=== PATIENT | male | born 1960 | race Caucasian/White ===

== ENCOUNTER 2025-05-31 06:43 | Day surgery (SDC) | payer BC ==
[2025-05-31] MEDS ORDERED: Rocuronium 100 MG/10 ML MDV IV ONE (06:44)
[2025-05-31] MEDS ORDERED: Ketorolac 30 MG/ML SDV IVPUSH ONE (06:44)
[2025-05-31] MEDS ORDERED: Dexamethasone 4 MG/ML 5 ML MDV IVPUSH ONE (06:44)
[2025-05-31] MEDS ORDERED: PHENYLEPHRINE HCL IV ONE (06:44)
[2025-05-31] MEDS ORDERED: Propofol 200 MG/20 ML SDV IV ONE (06:44)
[2025-05-31] MEDS ORDERED: Midazolam 1 MG/ML 2 ML SDV IV ONE (06:44)
[2025-05-31] MEDS ORDERED: ePHEDrine 50 MG/ML SDV IV ONE (06:44)
[2025-05-31] MEDS ORDERED: diphenhydrAMINE 50 MG/ML SDV IVPUSH ONE (06:44)
[2025-05-31] MEDS ORDERED: fentaNYL 100 MCG/2 ML SDV IV ONE (06:44)
[2025-05-31] MEDS ORDERED: Ondansetron 4 MG/2 ML SDV IVPUSH ONE (06:44)
[2025-05-31] MEDS ORDERED: Sodium Chloride 0.9% 10 ML Syringe FLUSH PRN (06:45)
[2025-05-31] MEDS: Lactated Ringers 1,000 ML IV SCH (07:37)
[2025-05-31] MEDS ORDERED: Acetaminophen/HYDROcodone 325-5 MG Tab PO PRN (09:38)
== END 2025-05-31 11:09 | disposition home or self-care (01) ==
LOC: FB.SDS 06:43
PROVIDERS: ATTEND Surgery
DX: K81.1 Chronic cholecystitis (principal); K82.8 Other specified diseases of gallbladder; K21.9 Gastro-esophageal reflux disease without esophagitis; I10 Essential (primary) hypertension; I25.10 Atherosclerotic heart disease of native coronary artery without angina pectoris; E66.9 Obesity, unspecified; Z79.82 Long term (current) use of aspirin; Z68.32 Body mass index [BMI] 32.0-32.9, adult; Z79.899 Other long term (current) drug therapy
CPT/HCPCS: 00790; 88304; J0665; J1100; J1200; J1885; J2003; J2250; J2371; J2405; J2704; J3010; J7120